=== PATIENT | male | born 1965 | race American Indian/Alaskan Native ===

== ENCOUNTER 2017-11-29 18:39 | Emergency (ER) | payer SELFPAY ==
[2017-11-29] MEDS ORDERED: NACL 0.9% 1000 ML 1,000 ML IV ONE (18:48)
[2017-11-29] MEDS ORDERED: PERCOCET 5/325 ONE (18:49)
[2017-11-29] MEDS ORDERED: PERCOCET 5/325 PO ONE (18:55)
[2017-11-29 20:45] LABS: Basophils % (Auto) 0.4 % (0.0-1.8); Eosinophils % (Auto) 0.1 % (0.0-4.3); Hematocrit 45.3 % (35.5-45.6); Hemoglobin 15.5 gm/dl (11.8-15.2); Lymphocytes # (Auto) 1.5 K/mm3 (1.2-5.4); Lymphocytes % (Auto) 14.8 % (13.4-35.0); Mean Corpuscular HGB Conc 34 % (32-34); Mean Corpuscular Hemoglobin 30 pg (28-32); Mean Corpuscular Volume 89 fl (84-94); Monocytes # (Auto) 0.7 K/mm3 (0.0-0.8); Monocytes % (Auto) 7.4 % (0.0-7.3); Platelet Count 170 K/mm3 (140-440); Red Cell Distribution Width 14.3 % (13.2-15.2)
[2017-11-29 20:59] LABS: Alanine Aminotransferase 26 units/L (7-56); Albumin 4.6 g/dL (3.9-5); BUN/Creatinine Ratio 12; Blood Urea Nitrogen 16 mg/dL (9-20); Calcium 9.5 mg/dL (8.4-10.2); Hemolysis Index 9
[2017-11-29] MEDS ORDERED: ZOFRAN ONE (21:06)
[2017-11-29] MEDS ORDERED: TORADOL ONE (21:06)
[2017-11-29] MEDS ORDERED: TORADOL IV ONE (22:30)
[2017-11-29] MEDS ORDERED: ZOFRAN IV ONE (22:30)
[2017-11-30] MEDS ORDERED: DILAUDID IV ONE (00:22)
[2017-11-30] MEDS ORDERED: NACL 0.9% 1000 ML 1,000 ML IV ONE (00:22)
[2017-11-30] MEDS ORDERED: ZOFRAN IV ONE (00:22)
--- NOTE | 2017-11-30 00:22 | Emergency Department Report ---
ED Abdominal Pain HPI - General Chief Complaint: Abdominal Pain Stated Complaint: ABDOMINAL PAIN Source: patient Mode of arrival: Ambulatory Limitations: No Limitations - History of Present Illness MD Complaint: abdominal pain -: Sudden Location: periumbilical Radiation: none Migration to: no migration Severity: severe Severity scale (0 -10): 8 Quality: sharp Consistency: constant Improves With: nothing Worsens With: nothing Associated Symptoms: denies other symptoms - Related Data Allergies Allergy/AdvReac Type Severity Reaction Status Date / Time No Known Allergies Allergy Unverified 11/29/17 18:48 ED Review of Systems ROS: Stated complaint: ABDOMINAL PAIN Other details as noted in HPI Comment: All other systems reviewed and negative Constitutional: denies: chills, fever Eyes: denies: eye pain ENT: denies: ear pain, dental pain Respiratory: cough. denies: shortness of breath Cardiovascular: denies: chest pain, palpitations Endocrine: no symptoms reported Gastrointestinal: abdominal pain, nausea. denies: vomiting, diarrhea Genitourinary: denies: urgency, dysuria, frequency Musculoskeletal: denies: back pain, joint swelling Skin: denies: rash, lesions Neurological: denies: headache, weakness, numbness Psychiatric: denies: anxiety, depression Hematological/Lymphatic: denies: easy bleeding, easy bruising ED Past Medical Hx - Social History Smoking Status: Current Every Day Smoker ED Physical Exam - General Limitations: No Limitations General appearance: alert, in distress - Head Head exam: Present: atraumatic, normocephalic, normal inspection - Eye Eye exam: Present: normal appearance, PERRL, EOMI Pupils: Present: normal accommodation - ENT ENT exam: Present: normal exam, normal orophraynx, mucous membranes moist - Neck Neck exam: Present: normal inspection, full ROM. Absent: tenderness - Respiratory Respiratory exam: Present: normal lung sounds bilaterally. Absent: respiratory distress, wheezes, rales, rhonchi, stridor - Cardiovascular Cardiovascular Exam: Present: regular rate, normal rhythm, normal heart sounds - GI/Abdominal GI/Abdominal exam: Present: soft, distended, tenderness, guarding, normal bowel sounds. Absent: rebound, rigid - Rectal Rectal exam: Present: deferred - Extremities Exam Extremities exam: Present: normal inspection, full ROM, normal capillary refill - Back Exam Back exam: Present: normal inspection, full ROM. Absent: tenderness - Neurological Exam Neurological exam: Present: alert, oriented X3, CN II-XII intact - Psychiatric Psychiatric exam: Present: normal affect, normal mood - Skin Skin exam: Present: warm, dry, intact, normal color. Absent: rash ED Course Vital Signs 11/29/17 11/29/17 11/30/17 18:45 23:12 00:25 Temperature 97.8 F 98.2 F Pulse Rate 76 92 H 96 H Respiratory 20 14 15 Rate Blood Pressure 170/121 160/121 O2 Sat by Pulse 95 98 Oximetry 11/30/17 11/30/17 11/30/17 00:31 01:01 01:03 Temperature Pulse Rate 90 87 Respiratory 17 14 20 Rate Blood Pressure 169/128 169/128 O2 Sat by Pulse 97 85 Oximetry 11/30/17 11/30/17 01:31 01:47 Temperature Pulse Rate 84 Respiratory 9 L 20 Rate Blood Pressure 143/87 O2 Sat by Pulse 93 98 Oximetry - Reevaluation(s) Reevaluation #1: 11/30/17 02:05 Patient care was transferred to Dr Richter at shift change pending CT scan of the abdomen and pelvis with contrast. ED Medical Decision Making - Lab Data Result diagrams: 11/29/17 20:34 11/29/17 20:34 - EKG Data -: EKG Interpreted by Me EKG shows normal: sinus rhythm Rate: normal (88) - EKG Data When compared to previous EKG there are: previous EKG unavailable Interpretation: nonspecific ST-T wave allison, LVH, other (Prolonged QT, T wave inversion in anterolateral leads. No STEMI.) - Radiology Data Radiology results: report reviewed, image reviewed - Medical Decision Making Abdominal Pain. Umbilical Hernia. Critical care attestation.: If time is entered above; I have spent that time in minutes in the direct care of this critically ill patient, excluding procedure time. ED Disposition Clinical Impression: Abdominal pain Qualifiers: Abdominal location: periumbilical Qualified Code(s): R10.33 - Periumbilical pain Umbilical hernia Qualifiers: Obstruction and gangrene presence: without obstruction or gangrene Qualified Code(s): K42.9 - Umbilical hernia without obstruction or gangrene Does the pt Need Aspirin: No Condition: Stable Referrals: PRIMARY CARE,MD [Primary Care Provider] - 3-5 Days
[2017-11-30] MEDS ORDERED: NORMODYNE IV ONE (00:25)
[2017-11-30 01:06] LABS: INR 0.99 (0.87-1.13)
--- NOTE | 2017-11-30 01:36 | XRay Report ---
FINAL REPORT EXAM: XR CXR CLINICAL INDICATIONS: COUGH FINDINGS: Single frontal view of the chest was acquired. There is cardiomegaly and a pacing device. There is no evidence of congestive heart failure. There is no consolidative infiltrate. IMPRESSION: CARDIOMEGALY. OTHERWISE, NO ACTIVE DISEASE IN THE CHEST
[2017-11-30 02:32] LABS: Bilirubin,Urine NEG (Negative); Blood,Urine NEG (Negative); Color,Urine Amber (Yellow); Hyaline Casts,Urine 24 /LPF; Mucus,Urine 3+ /HPF
[2017-11-30 04:35] VITALS: BP 144/84
--- NOTE | 2017-11-30 04:57 | Cat Scan Report ---
FINAL REPORT EXAM: CT ABDOMEN PELVIS W CON HISTORY: Abdominal Pain TECHNIQUE: CT images are acquired through the Abdomen and Pelvis following ingestion of positive enteric contrast and intravenous administration of contrast arterial and delayed phases. Transaxial, coronal and sagittal reformations are provided. PRIORS: None FINDINGS: Partially visualized intrathoracic contents are remarkable for cardiomegaly and partially imaged pacemaker lead. The liver, gallbladder, pancreas, spleen, and adrenal glands are unremarkable. Kidneys are normal in size, axis and position. No hydroureteronephrosis. There is a 6 millimeter nonobstructive stone in the right lower collecting system. There are a few scattered probably benign and simple appearing subcentimeter cysts. Multiple dilated loops of small bowel extend into the pelvis were there is a transition point to decompressed terminal ileum and colon. Positive enteric contrast is seen as far distally as the ileum. Appendix is normal. Small volume of dependent ascites. No pneumoperitoneum or lymphadenopathy. Aorta is normal in course and caliber. Superficial soft tissues are remarkable for a fat containing umbilical hernia measuring up to 3.3 cm at the neck with hernia sac measuring approximately 5.8 x 5.4 cm. There is inflammatory stranding and edema within the hernia sac. Small fat containing inguinal hernias versus spermatic cord lipomas. No acute or aggressive appearing skeletal findings. IMPRESSION: Small-bowel obstruction with transition point in the pelvis. Fat containing umbilical hernia measures up to 3.3 cm at the neck with hernia sac measuring up to 5.8 cm. Fat within the hernia appears infarcted. Nonobstructive right renal collecting system stone measures up to [address] Kirkland discussed findings with Dr. Richter at 0[address] Time on 11/30/2017 immediately following the examination.
--- NOTE | 2017-11-30 05:28 | Emergency Department Report ---
Blank Doc - Documentation Documentation: I was asked by Dr. Cloud to follow-up on the patient's CT scan of the abdomen and pelvis with oral and IV contrast. The disposition plan was that if there was no sign of any bowel obstruction, hernia strangulation or incarceration, or any acute process, and the patient could be discharged home. Otherwise, if something required admission or surgical consultation, then it would be taken care of. I got a phone call from the radiology service with results that showed a small bowel obstruction with a transition point in the pelvis, as well as a umbilical hernia with fat. I went and spoke to the patient to give him the results of the CT scan. At this point, the patient was dressed and asking for discharge home. I explained to the patient in as much detail as possible what a small bowel obstruction is. I explained to him that this requires admission, possibly a nasogastric tube placement, and either a surgical consultation or admission to the surgical service. The patient lives in [place], is returning there on Friday, and does not want to be admitted to the hospital to have this taken care of. He has the plan to return to [place] and speak to his primary care physician and if necessary go to the hospital he is familiar with, [facility]. I once again explained that this is an emergency and that it needs to be taken care of as soon as possible, today. I explained that if he does leave AGAINST MEDICAL ADVICE that the risks include (in as much non-medical terms as possible) : infarction of his bowel, bowel resection, colostomy, sepsis/infection, disability, coma or even . We had multiple conversations regarding the risks involved. He was given an opportunity to discuss this over with his significant other. After all this, the patient still does not want to be admitted to the hospital and wants to leave AGAINST MEDICAL ADVICE. The patient is awake, alert and has the appearance of normal decision making capacity. Patient signed the AMA form and has eloped from the hospital. Prior to this, I explained to him that if he changes his mind that he is welcome to return here for reevaluation and to get this taken care of.
== END 2017-11-30 05:25 | disposition left against medical advice (07) ==
LOC: ED 18:39
DX: K42.9 Umbilical hernia without obstruction or gangrene (principal); F17.200 Nicotine dependence, unspecified, uncomplicated
CPT/HCPCS: 36415; 71045; 74177; 80053; 81001; 82150; 82550; 83690; 83880; 84484; 85025; 85610; 93005; 93010; 96374; 96375; 96376; 99285; J1170; J1885; J2405; J7030; Q9967; 96361

== ENCOUNTER 2017-12-20 10:17 | Emergency (ER) | payer SELFPAY ==
[2017-12-20] MEDS ORDERED: ZOFRAN ODT PO ONE (11:26)
[2017-12-20] MEDS ORDERED: ATROVENT IH ONE ×2 (12:31→12:34)
[2017-12-20] MEDS ORDERED: PROVENTIL IH ONE ×2 (12:31→12:34)
--- NOTE | 2017-12-20 12:37 | Emergency Department Report ---
<CHENTE FLOREZ - Last Filed: 12/20/17 16:59> ED Abdominal Pain HPI - General Chief Complaint: Abdominal Pain Stated Complaint: BLOOD IN URINE Time Seen by Provider: 12/20/17 12:24 - Related Data Previous Rx's Medication Instructions Recorded Last Taken Type ALBUTEROL Inhaler [ProAir HFA 2 puff IH QID PRN #1 inhalation 12/20/17 Unknown Rx Inhaler] Ciprofloxacin HCl [Cipro] 500 mg PO BID #20 tablet 12/20/17 Unknown Rx Lisinopril [Zestril TAB] 20 mg PO QDAY #30 tablet 12/20/17 Unknown Rx Metoprolol [Lopressor TAB] 50 mg PO BID #60 tablet 12/20/17 Unknown Rx hydroCHLOROthiazide [HCTZ] 50 mg PO QDAY 30 Days tablet 12/20/17 Unknown Rx Allergies Allergy/AdvReac Type Severity Reaction Status Date / Time No Known Allergies Allergy Unverified 11/29/17 18:48 ED Review of Systems ROS: Stated complaint: BLOOD IN URINE Other details as noted in HPI ED Past Medical Hx - Medications Home Medications: Home Medications Medication Instructions Recorded Confirmed Last Taken Type ALBUTEROL Inhaler [ProAir HFA 2 puff IH QID PRN #1 inhalation 12/20/17 Unknown Rx Inhaler] Ciprofloxacin HCl [Cipro] 500 mg PO BID #20 tablet 12/20/17 Unknown Rx Lisinopril [Zestril TAB] 20 mg PO QDAY #30 tablet 12/20/17 Unknown Rx Metoprolol [Lopressor TAB] 50 mg PO BID #60 tablet 12/20/17 Unknown Rx hydroCHLOROthiazide [HCTZ] 50 mg PO QDAY 30 Days tablet 12/20/17 Unknown Rx ED Course Vital Signs 12/20/17 12/20/17 12/20/17 11:16 12:22 12:30 Temperature 98.4 F 98.4 F Pulse Rate 52 L 87 Pulse Rate [ Anterior Bilateral Throughout] Respiratory 18 19 Rate Respiratory Rate [Anterior Bilateral Throughout] Blood Pressure 172/128 185/134 Blood Pressure 184/144 [Right] O2 Sat by Pulse 98 100 97 Oximetry 12/20/17 12/20/17 12/20/17 12:38 12:45 13:00 Temperature Pulse Rate 87 91 H Pulse Rate [ 88 Anterior Bilateral Throughout] Respiratory 26 H 22 Rate Respiratory 20 Rate [Anterior Bilateral Throughout] Blood Pressure 169/122 165/109 Blood Pressure [Right] O2 Sat by Pulse 100 100 Oximetry 12/20/17 12/20/17 12/20/17 13:15 13:17 13:48 Temperature Pulse Rate 95 H 98 H Pulse Rate [ 98 H Anterior Bilateral Throughout] Respiratory 19 12 Rate Respiratory 20 Rate [Anterior Bilateral Throughout] Blood Pressure 177/118 177/118 Blood Pressure [Right] O2 Sat by Pulse 100 98 Oximetry 12/20/17 12/20/17 12/20/17 14:00 14:10 14:15 Temperature Pulse Rate 105 H 102 H Pulse Rate [ Anterior Bilateral Throughout] Respiratory 20 20 23 Rate Respiratory Rate [Anterior Bilateral Throughout] Blood Pressure 184/125 194/122 Blood Pressure [Right] O2 Sat by Pulse 94 95 Oximetry 12/20/17 12/20/17 12/20/17 14:30 14:40 14:46 Temperature Pulse Rate 105 H 89 Pulse Rate [ Anterior Bilateral Throughout] Respiratory 28 H 22 17 Rate Respiratory Rate [Anterior Bilateral Throughout] Blood Pressure 201/123 199/118 Blood Pressure [Right] O2 Sat by Pulse 96 95 Oximetry 12/20/17 12/20/17 12/20/17 15:00 15:16 15:17 Temperature Pulse Rate 101 H 99 H 101 H Pulse Rate [ Anterior Bilateral Throughout] Respiratory 28 H 27 H Rate Respiratory Rate [Anterior Bilateral Throughout] Blood Pressure 183/105 159/108 159/108 Blood Pressure [Right] O2 Sat by Pulse 96 Oximetry 12/20/17 12/20/17 12/20/17 15:30 15:46 16:00 Temperature Pulse Rate 94 H 104 H 101 H Pulse Rate [ Anterior Bilateral Throughout] Respiratory 25 H 28 H 29 H Rate Respiratory Rate [Anterior Bilateral Throughout] Blood Pressure 156/95 150/114 157/106 Blood Pressure [Right] O2 Sat by Pulse 98 95 94 Oximetry 12/20/17 12/20/17 12/20/17 16:15 16:30 16:45 Temperature Pulse Rate 102 H 102 H 92 H Pulse Rate [ Anterior Bilateral Throughout] Respiratory 28 H 26 H 29 H Rate Respiratory Rate [Anterior Bilateral Throughout] Blood Pressure 154/115 154/115 152/94 Blood Pressure [Right] O2 Sat by Pulse 92 96 94 Oximetry 12/20/17 12/20/17 12/20/17 16:49 17:00 17:15 Temperature Pulse Rate 94 H 90 93 H Pulse Rate [ Anterior Bilateral Throughout] Respiratory 24 28 H Rate Respiratory Rate [Anterior Bilateral Throughout] Blood Pressure 156/95 148/85 136/93 Blood Pressure [Right] O2 Sat by Pulse 94 90 Oximetry 12/20/1718 18 17:30 17:45 18:00 Temperature Pulse Rate 98 H 92 H 102 H Pulse Rate [ Anterior Bilateral Throughout] Respiratory 24 26 H 18 Rate Respiratory Rate [Anterior Bilateral Throughout] Blood Pressure 127/85 136/94 136/94 Blood Pressure [Right] O2 Sat by Pulse 96 92 93 Oximetry 12/20/1718 18 18:15 18:30 18:45 Temperature Pulse Rate 91 H 83 76 Pulse Rate [ Anterior Bilateral Throughout] Respiratory 26 H 33 H 25 H Rate Respiratory Rate [Anterior Bilateral Throughout] Blood Pressure 144/106 129/92 127/82 Blood Pressure [Right] O2 Sat by Pulse 96 93 Oximetry 12/20/17 18:59 Temperature Pulse Rate 76 Pulse Rate [ Anterior Bilateral Throughout] Respiratory 22 Rate Respiratory Rate [Anterior Bilateral Throughout] Blood Pressure Blood Pressure 127/82 [Right] O2 Sat by Pulse 94 Oximetry - Reevaluation(s) Reevaluation #1: 12/20/17 17:00 Patient stated that he is feeling much better. On exam no evidence of incarcerated hernia, umbilical hernia is easily reduced. I believes this patient's symptoms is most likely related to UTI. Patient will be treated with ciprofloxacin for 10 days. I advised patient to follow up with his primary care physician in the next 2-3 days and to return to the ER if his symptoms get worse. ED Medical Decision Making - Lab Data Result diagrams: 12/20/17 12:33 12/20/17 12:33 - Medical Decision Making Referring Physician: PEGGY HAYES Patient Name: LADARIUS SAMANIEGO Date of : 1965 Sex: Male Report Date: 2017-12-20 Report Status: Finalized Findings [facility] [address] [place] [address] Cat Scan Report Signed Patient: LADARIUS SAMANIEGO MR#: [id number] : 1965 Acct:[id number] Age/Sex: 52 / M ADM Date: 12/20/17 Loc: ED Attending Dr: Ordering Physician: PEGGY HAYES MD Date of Service: 12/20/17 Procedure(s): CT abdomen pelvis w con Accession Number(s): [id number] cc: PEGGY HAYES MD FINAL REPORT EXAM: CT ABDOMEN PELVIS W CON HISTORY: recent bowel obstruction on ct, abd pain COMPARISON: CT of the abdomen and pelvis performed on 11/30/2017 TECHNIQUE: Multiple contiguous axial images were obtained from lung bases to the pubic symphysis after administration of IV and oral contrast. Reformatted sagittal and coronal images were available for review. FINDINGS: Lung bases: Mild ground-glass opacities. Visualized heart and mediastinum: Stable cardiomegaly.. Liver: Normal. Spleen: Normal. Pancreas: Normal. Gallbladder and Biliary Tree: No calcified gallstones. No biliary ductal dilatation. Adrenal glands: Normal. Kidneys: Simple appearing bilateral renal cortical cysts, similar in appearance to the previous study. No hydronephrosis. Bladder: Normal. Pelvic organs: Normal prostate gland and seminal vesicles. Bowel: The small bowel is no longer dilated. Oral contrast advances to the terminal ileum and cecum. No focal wall thickening. Peritoneum: No significant mesenteric adenopathy. No free air or free fluid. Vasculature: Abdominal aorta is normal in caliber without evidence of aneurysm. Normal appearance of the portal venous system and the inferior vena cava. Bones and soft tissues: No suspicious osseous lesions. No acute fracture or dislocation. Again seen is a fat containing periumbilical hernia measuring approximately 4.1 x 4.8 x 4.8 centimeters, with stranding of the herniated fat. IMPRESSION: 1. Interval resolution of previously seen small bowel obstruction. Oral contrast advances to the terminal ileum and cecum. 2. Unchanged fat containing periumbilical hernia with stranding of the herniated fat, concerning for infarct. Transcribed By: NANETTE Dictated By: USHA ART MD Electronically Authenticated By: USHA ART MD Signed Date/Time: 12/20/171626 DD/ 26 TD/TT: 12/20/171626 Critical care attestation.: If time is entered above; I have spent that time in minutes in the direct care of this critically ill patient, excluding procedure time. ED Disposition Clinical Impression: Asthma exacerbation, CHF (congestive heart failure), UTI (urinary tract infection), Hematuria, Umbilical hernia, Medication refill, Noncompliance with medication regimen Disposition: DC-01 TO HOME OR SELFCARE Is pt being admited?: No Condition: Stable Instructions: Asthma (ED), Urinary Tract Infection in Women (ED), Umbilical Hernia (ED), Acute Hematuria (ED) Additional Instructions: Take the medication as prescribed. Follow up with your doctor. Return if symptoms worsen as indicated by your discharge instructions Prescriptions: ALBUTEROL Inhaler [ProAir HFA Inhaler] 2 puff IH QID PRN #1 inhalation PRN Reason: Shortness Of Breath Ciprofloxacin HCl [Cipro] 500 mg PO BID #20 tablet hydroCHLOROthiazide [HCTZ] 50 mg PO QDAY 30 Days tablet Lisinopril [Zestril TAB] 20 mg PO QDAY #30 tablet Metoprolol [Lopressor TAB] 50 mg PO BID #60 tablet Referrals: GILMER KOCH MD [Staff Physician] - 3-5 Days (cardiology) FAY MURPHY MD [Staff Physician] - 3-5 Days (primary care ) [facility] [Provider Group] - 3-5 Days (primary care clinic) AMARJIT DE LUNA MD [Staff Physician] - 3-5 Days (urology) <PEGGY HAYES - Last Filed: 12/21/17 18:11> ED Abdominal Pain HPI - General Source: patient Mode of arrival: Ambulatory Limitations: No Limitations - History of Present Illness Initial Comments: 52-year-old male with a past medical history of asthma, pacemaker placement, chronic umbilical hernia, and sleep apnea presents to the hospital with complaints of left flank pain for 3 weeks and hematuria this am. Patient was seen and evaluated in the ED here on 11/30/2017. CT with PO and IV contrast shows small bowel obstruction with transition point in the pelvis. Patient also had a fat-containing umbilical hernia and the fat within the hernia appeared to be infarcted. He also had a nonobstructive right renal collecting system stone measuring 6 mm. Patient signed out AGAINST MEDICAL ADVICE despite the CT findings. He has not been seen by another physician for this visit. He now complains of 6/10 left flank pain and had gross hematuria this a.m. He denies dysuria, nausea, or vomiting. Last bowel movement this a.m. Patient complaining the shortness of breath with wheezing that started within the last hour. 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 He's been noncompliant with his blood pressure medications for 3 weeks as well. ED Review of Systems Comment: All other systems reviewed and negative ED Past Medical Hx - Past Medical History Previous Medical History?: Yes Hx Hypertension: Yes Hx Asthma: Yes Additional medical history: Pacemaker, hernia, sleep apnea - Surgical History Past Surgical History?: Yes Additional Surgical History: pacemaker. plate in left ankle - Social History Smoking Status: Current Every Day Smoker Substance Use Type: None ED Physical Exam - General Limitations: No Limitations - Other Other exam information: General: No limitations, patient is alert in no acute distress Head exam: Atraumatic, normocephalic Eyes exam: Normal appearance, non icteric sclera ENT: Moist mucous membrane, normal oropharynx Neck exam: Normal inspection, full range of motion, no meningismus nontender Respiratory exam: Clear to auscultation bilateral, no wheezes, rales, crackles Cardiovascular: Normal rate and rhythm, normal heart sounds Abdomen: Soft, nondistended, mild left flank pain, reducible umbilical hernia. Normal bowel sounds without rebound or guarding Extremity: Full range of motion normal inspection no deformity Back: Normal Inspection, full range of motion, no tenderness Neurologic: Alert, oriented x3, cranial nerves intact, no motor or sensory deficit Psychiatric: normal affect, normal mood Skin: Warm, dry, intact ED Medical Decision Making - Lab Data Result diagrams: 12/20/17 12:33 12/20/17 12:33 Lab Results 12/20/17 12/20/17 12/20/17 Range/Units 12:33 12:33 12:33 WBC 5.2 (4.5-11.0) K/mm3 RBC 4.89 (3.65-5.03) M/mm3 Hgb 14.2 (11.8-15.2) gm/dl Hct 43.2 (35.5-45.6) % MCV 88 (84-94) fl MCH 29 (28-32) pg MCHC 33 (32-34) % RDW 14.8 (13.2-15.2) % Plt Count 168 (140-440) K/mm3 Lymph % (Auto) 29.0 (13.4-35.0) % Hand % (Auto) 11.3 H (0.0-7.3) % Eos % (Auto) 1.4 (0.0-4.3) % Baso % (Auto) 0.9 (0.0-1.8) % Lymph # 1.5 (1.2-5.4) K/mm3 Hand # 0.6 (0.0-0.8) K/mm3 Eos # 0.1 (0.0-0.4) K/mm3 Baso # 0.0 (0.0-0.1) K/mm3 Seg Neutrophils % 57.4 (40.0-70.0) % Seg Neutrophils # 3.0 (1.8-7.7) K/mm3 PT 13.9 (12.2-14.9) Sec. INR 1.02 (0.87-1.13) APTT 26.9 (24.2-36.6) Sec. Sodium 138 (137-145) mmol/L Potassium 3.9 (3.6-5.0) mmol/L Chloride 101.1 (98-107) mmol/L Carbon Dioxide 24 (22-30) mmol/L Anion Gap 17 mmol/L BUN 10 (9-20) mg/dL Creatinine 1.0 (0.8-1.5) mg/dL Estimated GFR > 60 ml/min BUN/Creatinine Ratio 10 % Glucose 130 H (75-100) mg/dL Calcium 9.0 (8.4-10.2) mg/dL Total Bilirubin 0.60 (0.1-1.2) mg/dL AST 22 (5-40) units/L ALT 20 (7-56) units/L Alkaline Phosphatase 61 (35-129) units/L Total Protein 7.1 (6.3-8.2) g/dL Albumin 3.9 (3.9-5) g/dL Albumin/Globulin Ratio 1.2 % Lipase 14 (13-60) units/L Urine Color (Yellow) Urine Turbidity (Clear) Urine pH (5.0-7.0) Ur Specific [place] (1.003-1.030) Urine Protein (Negative) mg/dL Urine Glucose (UA) (Negative) mg/dL Urine Ketones (Negative) mg/dL Urine Blood (Negative) Urine Nitrite (Negative) Urine Bilirubin (Negative) Urine Urobilinogen (<2.0) mg/dL Ur Leukocyte Esterase (Negative) Urine WBC (Auto) (0.0-6.0) /HPF Urine RBC (Auto) (0.0-6.0) /HPF 12/20/17 Range/Units 14:17 WBC (4.5-11.0) K/mm3 RBC (3.65-5.03) M/mm3 Hgb (11.8-15.2) gm/dl Hct (35.5-45.6) % MCV (84-94) fl MCH (28-32) pg MCHC (32-34) % RDW (13.2-15.2) % Plt Count (140-440) K/mm3 Lymph % (Auto) (13.4-35.0) % Hand % (Auto) (0.0-7.3) % Eos % (Auto) (0.0-4.3) % Baso % (Auto) (0.0-1.8) % Lymph # (1.2-5.4) K/mm3 Hand # (0.0-0.8) K/mm3 Eos # (0.0-0.4) K/mm3 Baso # (0.0-0.1) K/mm3 Seg Neutrophils % (40.0-70.0) % Seg Neutrophils # (1.8-7.7) K/mm3 PT (12.2-14.9) Sec. INR (0.87-1.13) APTT (24.2-36.6) Sec. Sodium (137-145) mmol/L Potassium (3.6-5.0) mmol/L Chloride (98-107) mmol/L Carbon Dioxide (22-30) mmol/L Anion Gap mmol/L BUN (9-20) mg/dL Creatinine (0.8-1.5) mg/dL Estimated GFR ml/min BUN/Creatinine Ratio % Glucose (75-100) mg/dL Calcium (8.4-10.2) mg/dL Total Bilirubin (0.1-1.2) mg/dL AST (5-40) units/L ALT (7-56) units/L Alkaline Phosphatase (35-129) units/L Total Protein (6.3-8.2) g/dL Albumin (3.9-5) g/dL Albumin/Globulin Ratio % Lipase (13-60) units/L Urine Color Red (Yellow) Urine Turbidity Cloudy (Clear) Urine pH 6.0 (5.0-7.0) Ur Specific [place] 1.048 H (1.003-1.030) Urine Protein 100 mg/dl (Negative) mg/dL Urine Glucose (UA) Neg (Negative) mg/dL Urine Ketones Tr (Negative) mg/dL Urine Blood Lg (Negative) Urine Nitrite Neg (Negative) Urine Bilirubin Neg (Negative) Urine Urobilinogen < 2.0 (<2.0) mg/dL Ur Leukocyte Esterase Neg (Negative) Urine WBC (Auto) > 182.0 H (0.0-6.0) /HPF Urine RBC (Auto) > 182.0 (0.0-6.0) /HPF - EKG Data -: EKG Interpreted by Ne EKG shows normal: sinus rhythm, axis (96), QRS complexes ([id number]), ST-T waves ( lvh, no stemi) Rate: normal - EKG Data When compared to previous EKG there are: previous EKG unavailable - Radiology Data Radiology results: report reviewed FINAL REPORT EXAM: XR CHEST 1V AP HISTORY: sob COMPARISON: Chest radiograph performed on 11/29/2017 TECHNIQUE: Single frontal view of the chest FINDINGS: Left-sided defibrillator is unchanged in position. Stable cardiomegaly. Streaky atelectasis at the bilateral lung bases. No pleural effusion or pneumothorax. No acute bony or soft tissue abnormality. IMPRESSION: Stable cardiomegaly. Streaky atelectasis at the bilateral lung bases. CTA chest: read by radiology no evidence of Pulmonary embolilsm mild interlobal septal thickening and groung-glass opacities at the bilateral lung bases that may reflect mild edema Cardiomegaly - Medical Decision Making Shortness of breath Mild CHF as per CTA, no pulmonary embolism Patient's wheezing improved after albuterol and Atrovent and he reports feeling better Received Lasix 40 mg IV 1 Patient needs an inhaler refill Hematuria Positive UTI with hematuria urine culture pending No signs of sepsis Normal renal function Rocephin given in the ED Antibiotics will be continued with urology follow-up recommended Chronic hypertension Noncompliant with meds 3 weeks Positive reduction and pressure after IV hydralazine but then trended back up additional Clonidine 0.1 mg given Patient provided a verbal regarding his current medications and therefore they will be refilled in addition to newly prescribed antibiotic There was a delay in receiving CT abd/pelvis results due to image transfer issues. Dr Florez will follow pt prepped for d/c with med refill meds and abx, however final dispo depends on ct results. - Differential Diagnosis obstruction, renal colic, asthma, pe, chf, htn emergency Critical Care Time: No ED Disposition Is pt being admited?: No Time of Disposition: 16:00 (s/o to liudmila)
[2017-12-20 12:59] LABS: Basophils % (Auto) 0.9 % (0.0-1.8); Eosinophils # (Auto) 0.1 K/mm3 (0.0-0.4); Eosinophils % (Auto) 1.4 % (0.0-4.3); Hematocrit 43.2 % (35.5-45.6); Hemoglobin 14.2 gm/dl (11.8-15.2); Lymphocytes # (Auto) 1.5 K/mm3 (1.2-5.4); Mean Corpuscular HGB Conc 33 % (32-34); Mean Corpuscular Hemoglobin 29 pg (28-32); Mean Corpuscular Volume 88 fl (84-94); Monocytes # (Auto) 0.6 K/mm3 (0.0-0.8); Monocytes % (Auto) 11.3 % (0.0-7.3); Platelet Count 168 K/mm3 (140-440); Red Blood Count 4.89 M/mm3 (3.65-5.03); Red Cell Distribution Width 14.8 % (13.2-15.2)
[2017-12-20 13:05] LABS: Alanine Aminotransferase 20 units/L (7-56); Albumin 3.9 g/dL (3.9-5); BUN/Creatinine Ratio 10; Blood Urea Nitrogen 10 mg/dL (9-20); Hemolysis Index 66; Lipase 14 units/L (13-60)
[2017-12-20 13:06] LABS: INR 1.02 (0.87-1.13)
[2017-12-20 13:07] LABS: Partial Thromboplastin Time 26.9 Sec. (24.2-36.6)
[2017-12-20] MEDS ORDERED: APRESOLINE IV ONE ×2 (13:28→15:12)
[2017-12-20] MEDS ORDERED: TORADOL IV ONE (14:09)
--- NOTE | 2017-12-20 14:19 | XRay Report ---
FINAL REPORT EXAM: XR CHEST 1V AP HISTORY: sob COMPARISON: Chest radiograph performed on 11/29/2017 TECHNIQUE: Single frontal view of the chest FINDINGS: Left-sided defibrillator is unchanged in position. Stable cardiomegaly. Streaky atelectasis at the bilateral lung bases. No pleural effusion or pneumothorax. No acute bony or soft tissue abnormality. IMPRESSION: Stable cardiomegaly. Streaky atelectasis at the bilateral lung bases.
--- NOTE | 2017-12-20 15:00 | Cat Scan Report ---
FINAL REPORT EXAM: CT ANGIO CHEST HISTORY: sob, recent trip from [facility] COMPARISON: None. TECHNIQUE: Multiple contiguous axial images were obtained through the chest after administration of IV contrast. Reformatted sagittal and coronal images were available for review. FINDINGS: Medical devices: Left-sided pacemaker device with intracardiac leads. Thyroid: Normal. Lymph nodes: No significant mediastinal, hilar, or axillary lymphadenopathy. Vasculature: Normal caliber of the main pulmonary artery. No filling defect within the main pulmonary artery and its branches to suggest pulmonary embolism. Normal caliber of the thoracic aorta with a normal variant branching pattern of the aortic arch with a common origin between the right brachiocephalic artery and left subclavian artery. Heart: Cardiomegaly. Other mediastinal structures: Normal. Lung parenchyma: Linear atelectasis in the lingula. Mild interlobular septal thickening and ground-glass opacities at the bilateral lung bases. Airways: Patent. No bronchiectasis. Pleura: No pleural effusion or pneumothorax. Chest wall and spine: No suspicious osseous lesions. No acute fracture or dislocation. Upper Abdomen: Normal. IMPRESSION: 1. No evidence of pulmonary embolism. 2. Mild interlobular septal thickening and ground-glass opacities at the bilateral lung bases that may reflect mild edema. 3. Cardiomegaly.
[2017-12-20 15:15] LABS: Bilirubin,Urine NEG (Negative); Blood,Urine LG (Negative); Color,Urine Red (Yellow); Urobilinogen,Urine < 2.0 mg/dL (<2.0)
[2017-12-20 15:20] LABS: RBC,Urine > 182.0 /HPF (0.0-6.0); WBC,Urine > 182.0 /HPF (0.0-6.0)
[2017-12-20] MEDS ORDERED: LASIX IV ONE (15:29)
[2017-12-20] MEDS ORDERED: CATAPRES PO ONE (16:00)
[2017-12-20] MEDS ORDERED: ROCEPHIN/NS 1 GM/50 ML 1 GM/50 ML BAG IV ONE (16:28)
--- NOTE | 2017-12-20 16:35 | Cat Scan Report ---
FINAL REPORT EXAM: CT ABDOMEN PELVIS W CON HISTORY: recent bowel obstruction on ct, abd pain COMPARISON: CT of the abdomen and pelvis performed on 11/30/2017 TECHNIQUE: Multiple contiguous axial images were obtained from lung bases to the pubic symphysis after administration of IV and oral contrast. Reformatted sagittal and coronal images were available for review. FINDINGS: Lung bases: Mild ground-glass opacities. Visualized heart and mediastinum: Stable cardiomegaly.. Liver: Normal. Spleen: Normal. Pancreas: Normal. Gallbladder and Biliary Tree: No calcified gallstones. No biliary ductal dilatation. Adrenal glands: Normal. Kidneys: Simple appearing bilateral renal cortical cysts, similar in appearance to the previous study. No hydronephrosis. Bladder: Normal. Pelvic organs: Normal prostate gland and seminal vesicles. Bowel: The small bowel is no longer dilated. Oral contrast advances to the terminal ileum and cecum. No focal wall thickening. Peritoneum: No significant mesenteric adenopathy. No free air or free fluid. Vasculature: Abdominal aorta is normal in caliber without evidence of aneurysm. Normal appearance of the portal venous system and the inferior vena cava. Bones and soft tissues: No suspicious osseous lesions. No acute fracture or dislocation. Again seen is a fat containing periumbilical hernia measuring approximately 4.1 x 4.8 x 4.8 centimeters, with stranding of the herniated fat. IMPRESSION: 1. Interval resolution of previously seen small bowel obstruction. Oral contrast advances to the terminal ileum and cecum. 2. Unchanged fat containing periumbilical hernia with stranding of the herniated fat, concerning for infarct.
[2017-12-20 18:53] VITALS: BP 127/82
== END 2017-12-20 18:59 | disposition home or self-care (01) ==
LOC: ED 10:17
DX: J45.901 Unspecified asthma with (acute) exacerbation (principal); R31.9 Hematuria, unspecified; I50.9 Heart failure, unspecified; K42.9 Umbilical hernia without obstruction or gangrene; Z76.0 Encounter for issue of repeat prescription; Z91.14 Patient's other noncompliance with medication regimen; I10 Essential (primary) hypertension; F17.200 Nicotine dependence, unspecified, uncomplicated; Z95.0 Presence of cardiac pacemaker
CPT/HCPCS: 36415; 71045; 71275; 74177; 80053; 81001; 83690; 85025; 85610; 85730; 87086; 93005; 93010; 94644; 96374; 96375; 99285; J0360; J0696; J1885; J1940; Q9967; Q0162

== ENCOUNTER 2018-02-17 23:12 | Emergency (ER) | payer SELFPAY ==
--- NOTE | 2018-02-18 00:09 | Emergency Department Report ---
ED General Adult HPI - General Chief complaint: High BP Stated complaint: HIGH BP Time Seen by Provider: 02/18/18 00:09 Source: EMS Mode of arrival: Stretcher Limitations: No Limitations - History of Present Illness Initial comments: 52-year-old gentleman with a history of hypertension presents complaining of elevated blood pressure and just "overall not feeling well". Patient denies any specific chest pain or shortness of breath, but reports that he has occasional abdominal pain. Patient also denies fever cough vomiting diarrhea constipation. She reports that he has been compliant with medications but has not seen a primary physician since last ED visit. -: Gradual - Related Data Previous Rx's Medication Instructions Recorded Last Taken Type ALBUTEROL Inhaler (OR & NICU) 2 puff IH QID PRN #1 inhalation 12/20/17 Unknown Rx [ProAir HFA Inhaler] Ciprofloxacin HCl [Cipro] 500 mg PO BID #20 tablet 12/20/17 Unknown Rx Lisinopril [Zestril TAB] 20 mg PO QDAY #30 tablet 12/20/17 Unknown Rx Metoprolol [Lopressor TAB] 50 mg PO BID #60 tablet 12/20/17 Unknown Rx hydroCHLOROthiazide [HCTZ] 50 mg PO QDAY 30 Days tablet 12/20/17 Unknown Rx Allergies Allergy/AdvReac Type Severity Reaction Status Date / Time No Known Allergies Allergy Unverified 11/29/17 18:48 ED Review of Systems ROS: Stated complaint: HIGH BP Other details as noted in HPI Constitutional: denies: chills, fever Eyes: denies: eye pain, eye discharge, vision change ENT: denies: ear pain, throat pain Respiratory: cough. denies: shortness of breath, wheezing Cardiovascular: denies: chest pain, palpitations Endocrine: no symptoms reported Gastrointestinal: denies: abdominal pain, nausea, diarrhea Genitourinary: denies: urgency, dysuria Musculoskeletal: denies: back pain, joint swelling, arthralgia Skin: denies: rash, lesions Neurological: denies: headache, weakness, paresthesias Psychiatric: denies: anxiety, depression Hematological/Lymphatic: denies: easy bleeding, easy bruising ED Past Medical Hx - Past Medical History Hx Hypertension: Yes Hx Asthma: Yes Additional medical history: Pacemaker, hernia, sleep apnea - Surgical History Additional Surgical History: pacemaker. plate in left ankle - Social History Smoking Status: Never Smoker Substance Use Type: None - Medications Home Medications: Home Medications Medication Instructions Recorded Confirmed Last Taken Type ALBUTEROL Inhaler (OR & NICU) 2 puff IH QID PRN #1 inhalation 12/20/17 Unknown Rx [ProAir HFA Inhaler] Ciprofloxacin HCl [Cipro] 500 mg PO BID #20 tablet 12/20/17 Unknown Rx Lisinopril [Zestril TAB] 20 mg PO QDAY #30 tablet 12/20/17 Unknown Rx Metoprolol [Lopressor TAB] 50 mg PO BID #60 tablet 12/20/17 Unknown Rx hydroCHLOROthiazide [HCTZ] 50 mg PO QDAY 30 Days tablet 12/20/17 Unknown Rx ED Physical Exam - General Limitations: No Limitations General appearance: alert, in no apparent distress - Head Head exam: Present: atraumatic, normocephalic - Eye Eye exam: Present: normal appearance - ENT ENT exam: Present: mucous membranes moist - Neck Neck exam: Present: normal inspection - Respiratory Respiratory exam: Present: normal lung sounds bilaterally. Absent: respiratory distress - Cardiovascular Cardiovascular Exam: Present: regular rate, normal rhythm. Absent: systolic murmur, diastolic murmur, rubs, gallop - GI/Abdominal GI/Abdominal exam: Present: soft, normal bowel sounds. Absent: distended, tenderness, guarding, rebound, rigid, hyperactive bowel sounds, hypoactive bowel sounds, organomegaly, mass, hernia - Rectal Rectal exam: Present: deferred - Extremities Exam Extremities exam: Present: normal inspection - Back Exam Back exam: Present: normal inspection - Neurological Exam Neurological exam: Present: alert, oriented X3 - Psychiatric Psychiatric exam: Present: normal affect, normal mood - Skin Skin exam: Present: warm, dry, intact, normal color. Absent: rash ED Course Vital Signs 02/18/18 02/18/18 02/18/18 00:10 01:09 01:17 Temperature 97.7 F Pulse Rate 86 84 Respiratory 20 18 Rate Blood Pressure 167/99 Blood Pressure 157/108 [Left] O2 Sat by Pulse 100 97 Oximetry - Reevaluation(s) Reevaluation #1: 02/18/18 00:26 Patient present with generalized complaints and hypertension. Order Benoit and x-ray and check basic lab studies. Patient also complains of an occasional abdominal pain. Patient exhibits no abdominal tenderness on exam with normal bowel sounds. Will continue to monitor in the ED. Reevaluation #2: 02/18/18 01:15 Patient rest and watching TV in no distress. Patient reports symptoms have improved. Blood pressure improving. ED Medical Decision Making - Lab Data Result diagrams: 02/18/18 00:50 02/18/18 00:50 - EKG Data When compared to previous EKG there are: no significant change 02/18/18 01:04 Sinus rhythm left axis and no ST elevation or depression T wave inversion in V4 V5 and V6 rate of 89. Time of interpretation 101 - Radiology Data CXR IMPRESSION: There is no acute cardiopulmonary abnormality.. - Medical Decision Making Patient's stable in no distress patient was signed out to Dr. Kolb. Pending second troponin. Critical care attestation.: If time is entered above; I have spent that time in minutes in the direct care of this critically ill patient, excluding procedure time. ED Disposition Clinical Impression: HTN (hypertension) Disposition: DC-01 TO HOME OR SELFCARE Is pt being admited?: No Condition: Stable Instructions: Hypertension (ED)
[2018-02-18] MEDS ORDERED: CATAPRES PO ONE (00:19)
--- NOTE | 2018-02-18 00:51 | XRay Report ---
FINAL REPORT PROCEDURE: XR CHEST ROUTINE 2V TECHNIQUE: PA and lateral chest radiographs were obtained. CPT 64219 HISTORY: cough COMPARISON: No prior studies are available for comparison. FINDINGS: Heart: Heart is borderline enlarged.. Mediastinum/Vessels: Normal. Lungs/Pleural space: Lungs are expanded. There are no infiltrates, effusions or pneumothoraces.. Bony thorax: No acute osseous abnormality. Other: Pacemaker leads are in proper position. IMPRESSION: There is no acute cardiopulmonary abnormality..
[2018-02-18 01:10] VITALS: BP 167/99
[2018-02-18 01:25] LABS: Basophils % (Auto) 0.7 % (0.0-1.8); Eosinophils # (Auto) 0.1 K/mm3 (0.0-0.4); Eosinophils % (Auto) 1.1 % (0.0-4.3); Hematocrit 43.4 % (35.5-45.6); Hemoglobin 14.2 gm/dl (11.8-15.2); Lymphocytes # (Auto) 1.6 K/mm3 (1.2-5.4); Lymphocytes % (Auto) 29.8 % (13.4-35.0); Mean Corpuscular HGB Conc 33 % (32-34); Mean Corpuscular Hemoglobin 29 pg (28-32); Mean Corpuscular Volume 88 fl (84-94); Monocytes # (Auto) 0.4 K/mm3 (0.0-0.8); Monocytes % (Auto) 8.1 % (0.0-7.3); Platelet Count 155 K/mm3 (140-440); Red Blood Count 4.91 M/mm3 (3.65-5.03); Red Cell Distribution Width 14.1 % (13.2-15.2)
[2018-02-18 01:47] LABS: BUN/Creatinine Ratio 14; Blood Urea Nitrogen 14 mg/dL (9-20); Calcium 8.7 mg/dL (8.4-10.2); Hemolysis Index 22; Lipase 19 units/L (13-60)
== END 2018-02-18 03:17 | disposition home or self-care (01) ==
LOC: ED 23:12
DX: I10 Essential (primary) hypertension (principal); J45.909 Unspecified asthma, uncomplicated; Z95.818 Presence of other cardiac implants and grafts
CPT/HCPCS: 36415; 71046; 80048; 83690; 84484; 85025; 93005; 93010